=== PATIENT | female | born 1970 | race African-American/Black ===

== ENCOUNTER 2022-02-11 13:45 | Inpatient (IN) | payer OTHER ==
[2022-02-11] MEDS ORDERED: MAGNESIUM CITRATE 300 ML BOTTLE PO PRN (14:57)
[2022-02-11] MEDS ORDERED: NICOTINE 10 MG CARTRIDGE (INHALER) IH PRN (14:57)
[2022-02-11] MEDS ORDERED: MAGNESIUM HYDROX 2400MG/30ML ORAL SUSPENSION 30 ML CUP PO PRN (14:57)
[2022-02-11] MEDS ORDERED: IBUPROFEN 400 MG TABLET (FP) PO PRN (14:57)
[2022-02-11] MEDS ORDERED: P-EPHED 60MG/TRIPROLIDI 2.5MG TABLET PO PRN (14:57)
[2022-02-11] MEDS ORDERED: LOPERAMIDE HCL 2 MG CAPSULE PO PRN (14:57)
[2022-02-11] MEDS ORDERED: ACETAMINOPHEN 325 MG TABLET (FP) PO PRN (14:57)
[2022-02-11] MEDS ORDERED: MAG HYDROX/AL HYDROX/SIMETH 30 ML UNIT-DOSE CUP PO PRN (14:57)
[2022-02-11] MEDS ORDERED: guaiFENesin 200 MG/10 ML 10 ML UNIT-DOSE CUPS PO PRN (14:57)
[2022-02-11 19:58] VITALS: BMI 37.7
[2022-02-11] MEDS ORDERED: TUBERCULIN PPD 5 TU/0.1ML VIAL ID ONE (20:32)
[2022-02-11] MEDS: hydrOXYzine PAMOATE 25 MG CAPSULE (FP) PO SCH ×2 (22:07→22:38)
[2022-02-11] MEDS: MELATONIN 5 MG TABLETS PO SCH (22:07)
[2022-02-11] MEDS: THIAMINE HCL 100 MG TABLET (FP) PO SCH (22:08)
[2022-02-12] MEDS: hydrOXYzine PAMOATE 25 MG CAPSULE (FP) PO SCH ×5 (06:35→21:55)
[2022-02-12] MEDS: PRENATAL VITAMINS W/ FOLIC ACID TABLET (FP) PO SCH (09:13)
[2022-02-12] MEDS: NICOTINE 7 MG/24 HOURS TOPICAL PATCH TD SCH (09:14)
[2022-02-12] MEDS: amLODIPine BESYLATE 10 MG TABLET (FP) PO SCH (10:31)
[2022-02-12] MEDS: PSYLLIUM 5.85 GM PACKET PO SCH (10:47)
[2022-02-12 12:30] LABS: HEMATOCRIT 40.9 % (32.4-45.2); HEMOGLOBIN 13.6 GM/dL (10.7-15.3); MCH 28.9 pg (25.7-33.7); MCHC 33.3 g/dl (32.0-36.0); MEAN CELL VOLUME 86.6 fl (80-96); MEAN PLT VOLUME 8.3 fl (7.5-11.1); PLATELET COUNT 430 10^3/uL (134-434); RBC 4.72 M/mm3 (3.60-5.2); RDW 14.3 % (11.6-15.6)
[2022-02-12 12:37] LABS: ALBUMIN 3.5 g/dl (3.4-5.0); BLOOD UREA NITROGEN 19.5 mg/dL (7-18); CALCIUM 10.2 mg/dL (8.5-10.1)
[2022-02-12 12:40] LABS: BILIRUBIN,TOTAL 0.4 mg/dL (0.2-1); TOT PROT 7.7 g/dl (6.4-8.2)
[2022-02-12 13:00] LABS: SYPHILIS W/ RPR CONF NON-REACTIVE (NONREACTIVE)
[2022-02-12] MEDS: ARIPiprazole 5 MG TABLET PO SCH (13:42)
[2022-02-12] MEDS: PRAZOSIN HCL 1 MG CAPSULE PO SCH (21:55)
[2022-02-12] MEDS: MELATONIN 5 MG TABLETS PO SCH (21:55)
[2022-02-12] MEDS: THIAMINE HCL 100 MG TABLET (FP) PO SCH (21:55)
[2022-02-13] MEDS: hydrOXYzine PAMOATE 25 MG CAPSULE (FP) PO SCH ×5 (07:25→22:03)
[2022-02-13] MEDS: PRENATAL VITAMINS W/ FOLIC ACID TABLET (FP) PO SCH (10:18)
[2022-02-13] MEDS: ARIPiprazole 5 MG TABLET PO SCH (10:18)
[2022-02-13] MEDS: NICOTINE 7 MG/24 HOURS TOPICAL PATCH TD SCH (10:19)
[2022-02-13] MEDS: amLODIPine BESYLATE 10 MG TABLET (FP) PO SCH (10:19)
[2022-02-13] MEDS: ALBUTEROL SO4 HFA INHALER IH PRN ×2 (10:19→22:04)
[2022-02-13] MEDS: PSYLLIUM 5.85 GM PACKET PO SCH (10:19)
[2022-02-13 13:56] LABS: EPI CELLS >36 /uL (0-25.1); HYALINE CASTS 2 /uL (0-3.1); URINE APPEARANCE CLOUDY; URINE BACTERIA 1409 /uL (0-1359); URINE BILIRUBIN NEGATIVE (NEGATIVE); URINE COLOR YELLOW; URINE GLUCOSE (UA) NEGATIVE (NEGATIVE); URINE KETONE NEGATIVE (NEGATIVE); URINE LEUK ESTERASE 1+ (NEGATIVE); URINE NITRITE NEGATIVE (NEGATIVE); URINE PROTEIN NEGATIVE (NEGATIVE); URINE RBC 26.9 /uL (0-23.9); URINE WBC 161 /uL (0-25.8)
[2022-02-13] MEDS: THIAMINE HCL 100 MG TABLET (FP) PO SCH (22:03)
[2022-02-13] MEDS: PRAZOSIN HCL 1 MG CAPSULE PO SCH (22:04)
[2022-02-13] MEDS: MELATONIN 5 MG TABLETS PO SCH (22:05)
[2022-02-14] MEDS: hydrOXYzine PAMOATE 25 MG CAPSULE (FP) PO SCH ×2 (07:05→10:52)
[2022-02-14 07:23] VITALS: TEMP 97.7
[2022-02-14] MEDS: PRENATAL VITAMINS W/ FOLIC ACID TABLET (FP) PO SCH (10:50)
[2022-02-14] MEDS: NICOTINE 7 MG/24 HOURS TOPICAL PATCH TD SCH (10:50)
[2022-02-14] MEDS: PSYLLIUM 5.85 GM PACKET PO SCH (10:51)
[2022-02-14] MEDS: ARIPiprazole 5 MG TABLET PO SCH (10:51)
[2022-02-14] MEDS: amLODIPine BESYLATE 10 MG TABLET (FP) PO SCH (10:51)
[2022-02-14 11:14] VITALS: BP 102/62; PULSE 98
[2022-02-15 08:33] LABS: SARS-CoV-2 NAA Not Detected
== END 2022-02-14 12:41 | disposition left against medical advice (07) | DRG 770 ==
LOC: YASAS 13:45 → Y5N 19:46
PROVIDERS: ADMIT Allergy & Immunology; ATTEND Allergy & Immunology
PROC: HZ42ZZZ Group Counseling for Substance Abuse Treatment, Cognitive-Behavioral (ICD-10-PCS; principal; 2022-02-11)
DX: F10.20 Alcohol dependence, uncomplicated (principal); F14.20 Cocaine dependence, uncomplicated; F12.10 Cannabis abuse, uncomplicated; F17.210 Nicotine dependence, cigarettes, uncomplicated; F31.9 Bipolar disorder, unspecified; F43.10 Post-traumatic stress disorder, unspecified; G47.00 Insomnia, unspecified; I10 Essential (primary) hypertension; J44.9 Chronic obstructive pulmonary disease, unspecified; T17.1XXA Foreign body in nostril, initial encounter; X58.XXXA Exposure to other specified factors, initial encounter; Y92.230 Patient room in hospital as the place of occurrence of the external cause; Z87.09 Personal history of other diseases of the respiratory system; Z28.310 Unvaccinated for COVID-19; Z91.410 Personal history of adult physical and sexual abuse; Z56.0 Unemployment, unspecified; Z59.00 Homelessness unspecified
CPT/HCPCS: 36415; 80053; 81003; 85027; 86780; 86803; 93005; 93010; 99282-25; C9803-CS; U0003; U0005

== ENCOUNTER 2022-02-13 05:16 | Emergency (ER) | payer OTHER ==
[2022-02-13 05:24] VITALS: BP 120/76; PULSE 88; TEMP 97.1; BMI 25.7
== END 2022-02-13 06:31 | disposition short-term general hospital (02) ==
LOC: JER 05:16
PROC: 09CKXZZ Extirpation of Matter from Nasal Mucosa and Soft Tissue, External Approach (ICD-10-PCS; principal; 2022-02-13)
DX: T17.1XXA Foreign body in nostril, initial encounter (principal)
CPT/HCPCS: 99282-25

== ENCOUNTER 2023-03-23 17:42 | Inpatient (IN) | payer OTHER ==
[2023-03-23 18:34] VITALS: BMI 21.9
[2023-03-23] MEDS ORDERED: IBUPROFEN 600 MG TABLET (FP) PO PRN (21:05)
[2023-03-23] MEDS ORDERED: DICYCLOMINE HCL 10 MG CAPSULE PO PRN (21:05)
[2023-03-23] MEDS ORDERED: NALOXONE HCL 0.4 MG/ML VIAL IM PRN (21:05)
[2023-03-23] MEDS ORDERED: IBUPROFEN 400 MG TABLET (FP) PO PRN (21:05)
[2023-03-23] MEDS ORDERED: BISMUTH SUBSALICYLATE 524 MG/30 ML PO PRN (21:05)
[2023-03-23] MEDS ORDERED: BENZOCAINE/MENTHOL (CHLORASEPTIC ) LOZENGE MM PRN (21:05)
[2023-03-23] MEDS ORDERED: MAG HYDROX/AL HYDROX/SIMETH 30 ML UNIT-DOSE CUP PO PRN (21:05)
[2023-03-23] MEDS ORDERED: NICOTINE 10 MG CARTRIDGE (INHALER) IH PRN (21:05)
[2023-03-23] MEDS ORDERED: NALOXONE HCL (KLOXXADO) 8 MG SPRAY NS PRN (21:05)
[2023-03-23] MEDS ORDERED: BENZONATATE 200 MG CAPSULE PO PRN (21:05)
[2023-03-23] MEDS ORDERED: ONDANSETRON *ODT* 4 MG TABLET SL PRN (21:05)
[2023-03-23] MEDS ORDERED: LOPERAMIDE HCL 2 MG CAPSULE PO PRN (21:05)
[2023-03-23] MEDS ORDERED: guaiFENesin 600 MG TABLET.ER (FP) PO PRN (21:05)
[2023-03-23] MEDS ORDERED: POLYETHYLENE GLYCOL (HEALTHYLAX) 3350 17 GM PACKET PO PRN (21:05)
[2023-03-23] MEDS ORDERED: MELATONIN 5 MG TABLETS PO SCH (22:00)
[2023-03-23] MEDS: THIAMINE HCL 100 MG TABLET (FP) PO SCH (23:50)
[2023-03-24] MEDS: METHOCARBAMOL 500 MG TABLET PO PRN (06:05)
[2023-03-24] MEDS ORDERED: ALBUTEROL SO4 HFA INHALER IH PRN (09:10)
[2023-03-24] MEDS ORDERED: chlordiazePOXIDE HCL 25 MG CAPSULE PO PRN (09:11)
[2023-03-24] MEDS: amLODIPine BESYLATE 10 MG TABLET (FP) PO SCH (10:27)
[2023-03-24] MEDS: HYDROCHLOROTHIAZIDE 12.5 MG CAPSULE (FP) PO SCH (10:27)
[2023-03-24] MEDS: PRENATAL VITAMINS W/ FOLIC ACID TABLET (FP) PO SCH (10:27)
[2023-03-24] MEDS: chlordiazePOXIDE HCL 25 MG CAPSULE PO SCH ×3 (10:28→22:27)
[2023-03-24] MEDS: ACETAMINOPHEN 325 MG TABLET (FP) PO PRN (10:30)
[2023-03-24] MEDS: NICOTINE 21 MG/24 HOURS TOPICAL PATCH TD SCH (10:43)
[2023-03-24 11:45] LABS: POTASSIUM 4.5 mmol/L (3.5-5.1)
[2023-03-24 11:54] LABS: BLOOD UREA NITROGEN 19.5 mg/dL (7-18)
[2023-03-24 11:55] LABS: CALCIUM 9.9 mg/dL (8.5-10.1)
[2023-03-24 11:59] LABS: CREATININE 0.9 mg/dL (0.55-1.3)
[2023-03-24 12:00] LABS: HEMOGLOBIN 12.3 GM/dL (10.7-15.3); MCH 27.1 pg (25.7-33.7); MCHC 31.6 g/dl (32.0-36.0); MEAN CELL VOLUME 85.7 fl (80-96); MEAN PLT VOLUME 9.2 fl (7.5-11.1); PLATELET COUNT 302 10^3/uL (134-434); RBC 4.55 M/mm3 (3.60-5.2); RDW 13.8 % (11.6-15.6); TOT PROT 6.9 g/dl (6.4-8.2)
[2023-03-24] MEDS: PRAZOSIN HCL 1 MG CAPSULE PO SCH (22:27)
[2023-03-24] MEDS: MELATONIN 5 MG TABLETS PO SCH (22:27)
[2023-03-24] MEDS: THIAMINE HCL 100 MG TABLET (FP) PO SCH (22:27)
[2023-03-25] MEDS: chlordiazePOXIDE HCL 25 MG CAPSULE PO SCH ×4 (05:58→22:23)
[2023-03-25] MEDS: METHOCARBAMOL 500 MG TABLET PO PRN (06:01)
[2023-03-25] MEDS: PRENATAL VITAMINS W/ FOLIC ACID TABLET (FP) PO SCH (10:51)
[2023-03-25] MEDS: NICOTINE 21 MG/24 HOURS TOPICAL PATCH TD SCH (10:53)
[2023-03-25] MEDS: amLODIPine BESYLATE 10 MG TABLET (FP) PO SCH (10:53)
[2023-03-25] MEDS: HYDROCHLOROTHIAZIDE 12.5 MG CAPSULE (FP) PO SCH (10:53)
[2023-03-25] MEDS: ALBUTEROL SO4 HFA INHALER IH PRN (15:02)
[2023-03-25] MEDS: THIAMINE HCL 100 MG TABLET (FP) PO SCH (22:23)
[2023-03-25] MEDS: PRAZOSIN HCL 1 MG CAPSULE PO SCH (22:23)
[2023-03-25] MEDS: MELATONIN 5 MG TABLETS PO SCH (22:24)
[2023-03-26] MEDS: chlordiazePOXIDE HCL 25 MG CAPSULE PO SCH ×4 (05:55→22:23)
[2023-03-26] MEDS: METHOCARBAMOL 500 MG TABLET PO PRN ×2 (06:07→22:23)
[2023-03-26] MEDS: NICOTINE 21 MG/24 HOURS TOPICAL PATCH TD SCH (10:31)
[2023-03-26] MEDS: amLODIPine BESYLATE 10 MG TABLET (FP) PO SCH (10:32)
[2023-03-26] MEDS: HYDROCHLOROTHIAZIDE 12.5 MG CAPSULE (FP) PO SCH (10:32)
[2023-03-26] MEDS: PRENATAL VITAMINS W/ FOLIC ACID TABLET (FP) PO SCH (10:33)
[2023-03-26] MEDS: PRAZOSIN HCL 1 MG CAPSULE PO SCH (22:23)
[2023-03-26] MEDS: THIAMINE HCL 100 MG TABLET (FP) PO SCH (22:23)
[2023-03-26] MEDS: ALBUTEROL SO4 HFA INHALER IH PRN (22:23)
[2023-03-26] MEDS: MELATONIN 5 MG TABLETS PO SCH (22:24)
[2023-03-27] MEDS ORDERED: chlordiazePOXIDE HCL 10 MG CAPSULE PO PRN
[2023-03-27] MEDS: chlordiazePOXIDE HCL 10 MG CAPSULE PO SCH ×4 (05:44→22:19)
[2023-03-27] MEDS: METHOCARBAMOL 500 MG TABLET PO PRN ×2 (05:45→17:30)
[2023-03-27] MEDS ORDERED: hydrOXYzine PAMOATE 25 MG CAPSULE (FP) PO ONE (09:15)
[2023-03-27] MEDS: ALBUTEROL SO4 HFA INHALER IH PRN (10:36)
[2023-03-27] MEDS: PRENATAL VITAMINS W/ FOLIC ACID TABLET (FP) PO SCH (10:37)
[2023-03-27] MEDS: amLODIPine BESYLATE 10 MG TABLET (FP) PO SCH (10:37)
[2023-03-27] MEDS: NICOTINE 21 MG/24 HOURS TOPICAL PATCH TD SCH (10:39)
[2023-03-27] MEDS: HYDROCHLOROTHIAZIDE 12.5 MG CAPSULE (FP) PO SCH (10:41)
[2023-03-27] MEDS: MAGNESIUM HYDROX 2400MG/30ML ORAL SUSPENSION 30 ML CUP PO PRN (17:36)
[2023-03-27] MEDS: PRAZOSIN HCL 1 MG CAPSULE PO SCH (22:19)
[2023-03-27] MEDS: THIAMINE HCL 100 MG TABLET (FP) PO SCH (22:19)
[2023-03-27] MEDS: SUVOREXANT 10 MG TABLET PO PRN (22:21)
[2023-03-28] MEDS: chlordiazePOXIDE HCL 10 MG CAPSULE PO SCH ×2 (05:26→17:11)
[2023-03-28] MEDS: ACETAMINOPHEN 325 MG TABLET (FP) PO PRN (05:27)
[2023-03-28] MEDS: PRENATAL VITAMINS W/ FOLIC ACID TABLET (FP) PO SCH (10:16)
[2023-03-28] MEDS: amLODIPine BESYLATE 10 MG TABLET (FP) PO SCH (10:16)
[2023-03-28] MEDS: NICOTINE 21 MG/24 HOURS TOPICAL PATCH TD SCH (10:17)
[2023-03-28] MEDS: HYDROCHLOROTHIAZIDE 12.5 MG CAPSULE (FP) PO SCH (10:17)
[2023-03-28] MEDS: METHOCARBAMOL 500 MG TABLET PO PRN (10:17)
[2023-03-28] MEDS: THIAMINE HCL 100 MG TABLET (FP) PO SCH (22:07)
[2023-03-28] MEDS: SUVOREXANT 10 MG TABLET PO PRN (22:08)
[2023-03-28] MEDS: PRAZOSIN HCL 1 MG CAPSULE PO SCH (22:08)
[2023-03-28] MEDS: ALBUTEROL SO4 HFA INHALER IH PRN (22:11)
[2023-03-28] MEDS: MAGNESIUM HYDROX 2400MG/30ML ORAL SUSPENSION 30 ML CUP PO PRN (22:56)
[2023-03-29] MEDS ORDERED: chlordiazePOXIDE HCL 10 MG CAPSULE PO ONE (05:00)
[2023-03-29] MEDS: METHOCARBAMOL 500 MG TABLET PO PRN (05:08)
[2023-03-29 09:58] VITALS: BP 111/72; PULSE 90; RESP 17; TEMP 97.9
[2023-03-29] MEDS: NICOTINE 21 MG/24 HOURS TOPICAL PATCH TD SCH (10:43)
[2023-03-29] MEDS: amLODIPine BESYLATE 10 MG TABLET (FP) PO SCH (10:43)
[2023-03-29] MEDS: PRENATAL VITAMINS W/ FOLIC ACID TABLET (FP) PO SCH (10:43)
[2023-03-29] MEDS: HYDROCHLOROTHIAZIDE 12.5 MG CAPSULE (FP) PO SCH (10:44)
== END 2023-03-29 11:30 | disposition home or self-care (01) | DRG 774 ==
LOC: YASAS 17:42 → Y3N 22:43 → UNDOADMIN 22:43 → Y6N 22:45 → Y3N 22:45 → Y6N 03-24 18:13
PROVIDERS: ADMIT Allergy & Immunology; ATTEND Surgery
PROC: HZ2ZZZZ Detoxification Services for Substance Abuse Treatment (ICD-10-PCS; principal; 2023-03-20)
DX: F10.230 Alcohol dependence with withdrawal, uncomplicated (principal); F14.20 Cocaine dependence, uncomplicated; F12.20 Cannabis dependence, uncomplicated; F17.213 Nicotine dependence, cigarettes, with withdrawal; F19.282 Other psychoactive substance dependence with psychoactive substance-induced sleep disorder; F19.24 Other psychoactive substance dependence with psychoactive substance-induced mood disorder; F31.9 Bipolar disorder, unspecified; F43.10 Post-traumatic stress disorder, unspecified; I10 Essential (primary) hypertension; J44.9 Chronic obstructive pulmonary disease, unspecified; J45.20 Mild intermittent asthma, uncomplicated; R73.9 Hyperglycemia, unspecified; Z62.810 Personal history of physical and sexual abuse in childhood; Z91.410 Personal history of adult physical and sexual abuse; Z28.310 Unvaccinated for COVID-19; Z28.9 Immunization not carried out for unspecified reason
CPT/HCPCS: 36415; 80053; 83036; 85027; 86780; 87635; 93005; 93010

== ENCOUNTER 2023-10-24 12:36 | Inpatient (IN) | payer OTHER ==
[2023-10-24 13:36] VITALS: BMI 20.2
[2023-10-24] MEDS ORDERED: guaiFENesin 600 MG TABLET.ER (FP) PO PRN (15:04)
[2023-10-24] MEDS ORDERED: chlordiazePOXIDE HCL 25 MG CAPSULE PO PRN (15:04)
[2023-10-24] MEDS ORDERED: DICYCLOMINE HCL 10 MG CAPSULE PO PRN (15:04)
[2023-10-24] MEDS ORDERED: IBUPROFEN 400 MG TABLET (FP) PO PRN (15:04)
[2023-10-24] MEDS ORDERED: LOPERAMIDE HCL 2 MG CAPSULE PO PRN (15:04)
[2023-10-24] MEDS ORDERED: MAGNESIUM HYDROX 2400MG/30ML ORAL SUSPENSION 30 ML CUP PO PRN (15:04)
[2023-10-24] MEDS ORDERED: POLYETHYLENE GLYCOL (HEALTHYLAX) 3350 17 GM PACKET PO PRN (15:04)
[2023-10-24] MEDS ORDERED: ONDANSETRON *ODT* 4 MG TABLET SL PRN (15:04)
[2023-10-24] MEDS ORDERED: BENZONATATE 200 MG CAPSULE PO PRN (15:04)
[2023-10-24] MEDS ORDERED: ACETAMINOPHEN 325 MG TABLET (FP) PO PRN (15:04)
[2023-10-24] MEDS ORDERED: NALOXONE HCL 0.4 MG/ML VIAL IM PRN (15:04)
[2023-10-24] MEDS ORDERED: MAG HYDROX/AL HYDROX/SIMETH 30 ML UNIT-DOSE CUP PO PRN (15:04)
[2023-10-24] MEDS ORDERED: NALOXONE HCL (KLOXXADO) 8 MG SPRAY NS PRN (15:04)
[2023-10-24] MEDS ORDERED: IBUPROFEN 600 MG TABLET (FP) PO PRN (15:04)
[2023-10-24] MEDS ORDERED: BISMUTH SUBSALICYLATE 262 MG/15 ML BTL PO PRN (15:04)
[2023-10-24] MEDS ORDERED: BENZOCAINE/MENTHOL (CHLORASEPTIC ) LOZENGE MM PRN (15:04)
[2023-10-24] MEDS: PRENATAL VITAMINS W/ FOLIC ACID TABLET (FP) PO SCH (16:13)
[2023-10-24] MEDS: NICOTINE 14 MG/24 HOURS TOPICAL PATCH TD SCH (16:13)
[2023-10-24] MEDS: chlordiazePOXIDE HCL 25 MG CAPSULE PO SCH ×2 (17:25→22:23)
[2023-10-24] MEDS: MELATONIN 5 MG TABLETS PO SCH (22:22)
[2023-10-24] MEDS: METHOCARBAMOL 500 MG TABLET PO PRN (22:22)
[2023-10-24] MEDS: THIAMINE HCL 100 MG TABLET (FP) PO SCH (22:22)
[2023-10-25] MEDS: chlordiazePOXIDE HCL 25 MG CAPSULE PO SCH ×4 (05:36→23:15)
[2023-10-25] MEDS: METHOCARBAMOL 500 MG TABLET PO PRN (05:43)
[2023-10-25] MEDS: hydrOXYzine PAMOATE 25 MG CAPSULE (FP) PO PRN (05:43)
[2023-10-25 08:30] LABS: CHLORIDE 106 mmol/L (98-107); POTASSIUM 4.6 mmol/L (3.5-5.1); SODIUM 139 mmol/L (136-145)
[2023-10-25 08:33] LABS: HEMATOCRIT 41.1 % (32.4-45.2); HEMOGLOBIN 13.3 GM/dL (10.7-15.3); MCH 27.6 pg (25.7-33.7); MCHC 32.3 g/dl (32.0-36.0); MEAN CELL VOLUME 85.4 fl (80-96); MEAN PLT VOLUME 8.3 fl (7.5-11.1); PLATELET COUNT 464 10^3/uL (134-434); RBC 4.81 M/mm3 (3.60-5.2); RDW 15.1 % (11.6-15.6); WHITE BLOOD COUNT 7.4 K/mm3 (4.0-10.0)
[2023-10-25 08:38] LABS: CALCIUM 9.5 mg/dL (8.5-10.1)
[2023-10-25 08:39] LABS: ALBUMIN 2.6 g/dl (3.4-5.0); ANION GAP 5 mmol/L (4-13); CO2 28 mmol/L (21-32); GLUCOSE,RANDOM 89 mg/dL (74-106)
[2023-10-25 08:42] LABS: CREATININE 0.9 mg/dL (0.55-1.3); SGOT/AST 36 U/L (15-37); SGPT/ALT 35 U/L (13-61)
[2023-10-25 08:44] LABS: BILIRUBIN,TOTAL 0.3 mg/dL (0.2-1); TOT PROT 6.7 g/dl (6.4-8.2)
[2023-10-25 08:45] LABS: ALK PHOS 66 U/L (45-117)
[2023-10-25] MEDS: NICOTINE 14 MG/24 HOURS TOPICAL PATCH TD SCH (10:25)
[2023-10-25] MEDS: PRENATAL VITAMINS W/ FOLIC ACID TABLET (FP) PO SCH (10:25)
[2023-10-25] MEDS: PRAZOSIN HCL 1 MG CAPSULE PO SCH (23:15)
[2023-10-25] MEDS: THIAMINE HCL 100 MG TABLET (FP) PO SCH (23:15)
[2023-10-25] MEDS: MELATONIN 5 MG TABLETS PO SCH (23:15)
[2023-10-26] MEDS: chlordiazePOXIDE HCL 25 MG CAPSULE PO SCH ×4 (05:39→22:05)
[2023-10-26] MEDS: PRENATAL VITAMINS W/ FOLIC ACID TABLET (FP) PO SCH (10:38)
[2023-10-26] MEDS: ARIPiprazole 5 MG TABLET PO SCH (10:39)
[2023-10-26] MEDS: NICOTINE 14 MG/24 HOURS TOPICAL PATCH TD SCH (10:41)
[2023-10-26] MEDS: PRAZOSIN HCL 1 MG CAPSULE PO SCH (22:04)
[2023-10-26] MEDS: THIAMINE HCL 100 MG TABLET (FP) PO SCH (22:04)
[2023-10-26] MEDS: MELATONIN 5 MG TABLETS PO SCH (22:04)
[2023-10-27] MEDS ORDERED: chlordiazePOXIDE HCL 10 MG CAPSULE PO PRN
[2023-10-27] MEDS: chlordiazePOXIDE HCL 10 MG CAPSULE PO SCH ×4 (06:30→23:06)
[2023-10-27] MEDS: NICOTINE 14 MG/24 HOURS TOPICAL PATCH TD SCH (10:16)
[2023-10-27] MEDS: ARIPiprazole 5 MG TABLET PO SCH (10:16)
[2023-10-27] MEDS: PRENATAL VITAMINS W/ FOLIC ACID TABLET (FP) PO SCH (10:16)
[2023-10-27] MEDS: hydrOXYzine PAMOATE 25 MG CAPSULE (FP) PO PRN (23:05)
[2023-10-27] MEDS: PRAZOSIN HCL 1 MG CAPSULE PO SCH (23:05)
[2023-10-27] MEDS: METHOCARBAMOL 500 MG TABLET PO PRN (23:05)
[2023-10-27] MEDS: MELATONIN 5 MG TABLETS PO SCH (23:05)
[2023-10-27] MEDS: THIAMINE HCL 100 MG TABLET (FP) PO SCH (23:05)
[2023-10-28] MEDS: chlordiazePOXIDE HCL 10 MG CAPSULE PO SCH ×2 (05:44→17:10)
[2023-10-28] MEDS: ARIPiprazole 5 MG TABLET PO SCH (09:46)
[2023-10-28] MEDS: PRENATAL VITAMINS W/ FOLIC ACID TABLET (FP) PO SCH (09:47)
[2023-10-28] MEDS: NICOTINE 14 MG/24 HOURS TOPICAL PATCH TD SCH (09:47)
[2023-10-28 11:32] LABS: BASO % 0.8 % (0-2.0); EOS % 5.1 % (0-4.5); HEMATOCRIT 40.5 % (32.4-45.2); LYMPH % 30.8 % (8-40); MCH 27.3 pg (25.7-33.7); MCHC 32.1 g/dl (32.0-36.0); MEAN CELL VOLUME 85.1 fl (80-96); MEAN PLT VOLUME 7.8 fl (7.5-11.1); MONO % 11.8 % (3.8-10.2); NEUT % 51.5 % (42.8-82.8); PLATELET COUNT 577 10^3/uL (134-434); RBC 4.76 M/mm3 (3.60-5.2); RDW 15.4 % (11.6-15.6); WHITE BLOOD COUNT 6.5 K/mm3 (4.0-10.0)
[2023-10-28] MEDS: THIAMINE HCL 100 MG TABLET (FP) PO SCH (22:03)
[2023-10-28] MEDS: MELATONIN 5 MG TABLETS PO SCH (22:03)
[2023-10-28] MEDS: PRAZOSIN HCL 1 MG CAPSULE PO SCH (22:03)
[2023-10-29] MEDS: chlordiazePOXIDE HCL 10 MG CAPSULE PO ONE ×2 (05:50→06:00)
[2023-10-29] MEDS: guaiFENesin 200 MG/10 ML 10 ML UNIT-DOSE CUPS PO PRN ×2 (08:01→15:56)
[2023-10-29] MEDS: NICOTINE 14 MG/24 HOURS TOPICAL PATCH TD SCH (10:45)
[2023-10-29] MEDS: ARIPiprazole 5 MG TABLET PO SCH (10:45)
[2023-10-29] MEDS: PRENATAL VITAMINS W/ FOLIC ACID TABLET (FP) PO SCH (10:45)
[2023-10-29] MEDS: PRAZOSIN HCL 1 MG CAPSULE PO SCH (22:06)
[2023-10-29] MEDS: MELATONIN 5 MG TABLETS PO SCH (22:07)
[2023-10-29] MEDS: hydrOXYzine PAMOATE 25 MG CAPSULE (FP) PO PRN (22:07)
[2023-10-29] MEDS: THIAMINE HCL 100 MG TABLET (FP) PO SCH (22:07)
[2023-10-30] MEDS: PRENATAL VITAMINS W/ FOLIC ACID TABLET (FP) PO SCH (10:30)
[2023-10-30] MEDS: NICOTINE 14 MG/24 HOURS TOPICAL PATCH TD SCH (10:30)
[2023-10-30] MEDS: ARIPiprazole 5 MG TABLET PO SCH (10:30)
[2023-10-30] MEDS: PRAZOSIN HCL 1 MG CAPSULE PO SCH (21:26)
[2023-10-30] MEDS: MELATONIN 5 MG TABLETS PO SCH (21:26)
[2023-10-30] MEDS: THIAMINE HCL 100 MG TABLET (FP) PO SCH (21:26)
[2023-10-31] MEDS ORDERED: ALBUTEROL SO4 HFA INHALER IH PRN (08:17)
[2023-10-31] MEDS: ARIPiprazole 5 MG TABLET PO SCH (09:37)
[2023-10-31] MEDS: NICOTINE 14 MG/24 HOURS TOPICAL PATCH TD SCH (09:38)
[2023-10-31] MEDS ORDERED: amLODIPine BESYLATE 10 MG TABLET (FP) PO SCH (10:00)
[2023-10-31] MEDS ORDERED: HYDROCHLOROTHIAZIDE 12.5 MG CAPSULE (FP) PO SCH (10:00)
[2023-10-31] MEDS: PRENATAL VITAMINS W/ FOLIC ACID TABLET (FP) PO SCH (10:35)
[2023-10-31 16:46] VITALS: RESP 18
[2023-10-31 20:41] VITALS: BP 115/68; PULSE 98; TEMP 98.4
== END 2023-10-31 21:48 | disposition left against medical advice (07) | DRG 770 ==
LOC: YASAS 12:36 → Y3N 15:47
PROVIDERS: ADMIT Surgery; ATTEND Allergy & Immunology
PROC: HZ2ZZZZ Detoxification Services for Substance Abuse Treatment (ICD-10-PCS; principal; 2023-10-24)
DX: F10.230 Alcohol dependence with withdrawal, uncomplicated (principal); F14.20 Cocaine dependence, uncomplicated; F12.20 Cannabis dependence, uncomplicated; F17.210 Nicotine dependence, cigarettes, uncomplicated; F31.9 Bipolar disorder, unspecified; F43.10 Post-traumatic stress disorder, unspecified; U07.1 COVID-19; E72.20 Disorder of urea cycle metabolism, unspecified; I10 Essential (primary) hypertension; J44.9 Chronic obstructive pulmonary disease, unspecified; J45.20 Mild intermittent asthma, uncomplicated; Z28.310 Unvaccinated for COVID-19; Z28.9 Immunization not carried out for unspecified reason
CPT/HCPCS: 36415; 80053; 80307; 81025; 82140; 85025; 85027; 86780; 87635

== ENCOUNTER 2024-08-21 17:25 | Inpatient (IN) | payer OTHER ==
[2024-08-21 21:16] VITALS: BMI 20.9
[2024-08-21] MEDS ORDERED: POLYETHYLENE GLYCOL (HEALTHYLAX) 3350 17 GM PACKET PO PRN (23:12)
[2024-08-21] MEDS ORDERED: ACETAMINOPHEN 325 MG TABLET (FP) PO PRN (23:12)
[2024-08-21] MEDS ORDERED: P-EPHED 60MG/TRIPROLIDI 2.5MG TABLET PO PRN (23:12)
[2024-08-21] MEDS ORDERED: hydrOXYzine PAMOATE 25 MG CAPSULE (FP) PO PRN (23:12)
[2024-08-21] MEDS ORDERED: IBUPROFEN 400 MG TABLET (FP) PO PRN (23:12)
[2024-08-21] MEDS ORDERED: LOPERAMIDE HCL 2 MG CAPSULE PO PRN (23:12)
[2024-08-21] MEDS ORDERED: MAGNESIUM HYDROX 2400MG/30ML ORAL SUSPENSION 30 ML CUP PO PRN (23:12)
[2024-08-21] MEDS ORDERED: IBUPROFEN 600 MG TABLET (FP) PO PRN (23:12)
[2024-08-21] MEDS ORDERED: NALOXONE (NYS OPIOID OVERDOSE PROGRAM) 4 MG/0.1 ML SPRAY NS PRN (23:12)
[2024-08-21] MEDS ORDERED: NICOTINE POLACRILEX 2 MG GUM BUC PRN (23:12)
[2024-08-21] MEDS ORDERED: MAG HYDROX/AL HYDROX/SIMETH 30 ML UNIT-DOSE CUP PO PRN (23:12)
[2024-08-21] MEDS ORDERED: NICOTINE POLACRILEX 2 MG LOZENGE BC PRN (23:12)
[2024-08-21] MEDS ORDERED: BENZONATATE 200 MG CAPSULE PO PRN (23:12)
[2024-08-21] MEDS ORDERED: cloNIDine HCL 0.1 MG TABLET ONE (23:46)
[2024-08-21] MEDS: ALBUTEROL SO4 2.5/IPRATROPIUM 0.5 INH SOL 3 ML VIAL.NEB. NEB SCH (23:49)
[2024-08-21] MEDS: cloNIDine HCL 0.1 MG TABLET PO ONE (23:49)
[2024-08-22] MEDS: guaiFENesin 600 MG TABLET.ER (FP) PO PRN (00:27)
[2024-08-22] MEDS: ALBUTEROL SO4 HFA INHALER IH PRN (00:27)
[2024-08-22] MEDS: METOPROLOL TARTRATE 25 MG TABLET (FP) PO ONE (00:42)
[2024-08-22] MEDS: MELATONIN 5 MG TABLETS PO SCH (00:42)
[2024-08-22] MEDS: amLODIPine BESYLATE 10 MG TABLET (FP) PO SCH (10:30)
[2024-08-22] MEDS: HYDROCHLOROTHIAZIDE 12.5 MG CAPSULE (FP) PO SCH (10:30)
[2024-08-22] MEDS: PRENATAL VITAMINS W/ FOLIC ACID TABLET (FP) PO SCH (10:30)
[2024-08-22 15:06] LABS: HEMATOCRIT 35.5 % (32.4-45.2); HEMOGLOBIN 11.4 GM/dL (10.7-15.3); MEAN CELL VOLUME 87.6 fl (80-96); MEAN PLT VOLUME 8.9 fl (7.5-11.1); PLATELET COUNT 285 10^3/uL (134-434); RBC 4.06 M/mm3 (3.60-5.2); RDW 13.9 % (11.6-15.6); WHITE BLOOD COUNT 8.1 K/mm3 (4.0-10.0)
[2024-08-22 15:32] LABS: CHLORIDE 111 mmol/L (98-107); POTASSIUM 4.3 mmol/L (3.5-5.1); SODIUM 143 mmol/L (136-145)
[2024-08-22 15:34] LABS: ALBUMIN 2.7 g/dl (3.4-5.0); CALCIUM 9.1 mg/dL (8.5-10.1)
[2024-08-22 15:35] LABS: ANION GAP 5 mmol/L (4-13); BLOOD UREA NITROGEN 20.1 mg/dL (7-18); CO2 27 mmol/L (21-32); GLUCOSE,RANDOM 144 mg/dL (74-106)
[2024-08-22 15:37] LABS: CREATININE 0.8 mg/dL (0.55-1.3); SGOT/AST 35 U/L (15-37); SGPT/ALT 29 U/L (13-61)
[2024-08-22 15:38] LABS: BILIRUBIN,TOTAL 0.3 mg/dL (0.2-1)
[2024-08-22 15:39] LABS: ALK PHOS 101 U/L (45-117)
[2024-08-22 17:07] LABS: EPI CELLS 35 /uL (0-25.1); HYALINE CASTS 2 /uL (0-3.1); PH,URINE 6.5 (5.0-8.0); URINE APPEARANCE CLEAR; URINE BACTERIA 240 /uL (0-1359); URINE BILIRUBIN NEGATIVE (NEGATIVE); URINE COLOR YELLOW; URINE GLUCOSE (UA) NEGATIVE (NEGATIVE); URINE KETONE NEGATIVE (NEGATIVE); URINE LEUK ESTERASE 1+ (NEGATIVE); URINE NITRITE NEGATIVE (NEGATIVE); URINE PROTEIN NEGATIVE (NEGATIVE); URINE RBC 7 /uL (0-23.9); URINE UROBILINOGEN 0.2 mg/dL (0.2-1.0); URINE WBC 67 /uL (0-25.8)
[2024-08-22] MEDS: THIAMINE 100 MG TABLET PO SCH (21:20)
[2024-08-22] MEDS: DIVALPROEX SODIUM 250 MG TABLET E.C. PO SCH (21:20)
[2024-08-22] MEDS: QUEtiapine FUMARATE 100 MG TABLET (FP) PO SCH (21:20)
[2024-08-23] MEDS: ALBUTEROL SO4 0.083% IH SOL 2.5 MG/3 ML VIAL.NEB. NEB PRN (09:29)
[2024-08-23] MEDS: predniSONE 20 MG TABLET (UD) PO SCH (14:40)
[2024-08-23] MEDS: AZITHROMYCIN 250 MG TABLET PO ONE (14:40)
[2024-08-23] MEDS: BENZOCAINE/MENTHOL (CHLORASEPTIC ) LOZENGE MM PRN (21:51)
[2024-08-24] MEDS: MELATONIN 5 MG TABLETS PO ONE (02:15)
[2024-08-24] MEDS: AZITHROMYCIN 250 MG TABLET PO SCH (09:23)
[2024-08-24] MEDS ORDERED: ALBUTEROL SO4 0.083% IH SOL 2.5 MG/3 ML VIAL.NEB. NEB PRN (15:12)
[2024-08-25] MEDS: BUDESONIDE/FORMETEROL FUMARATE 160/4.5 mcg INHALER IH SCH (12:50)
[2024-08-26 13:01] VITALS: RESP 16
[2024-08-27 06:12] VITALS: TEMP 97.6
[2024-08-27 09:10] VITALS: BP 135/76; PULSE 100
[2024-08-27] MEDS ORDERED: BENZONATATE 200 MG CAPSULE PO PRN (10:44)
[2024-08-27] MEDS ORDERED: guaiFENesin 600 MG TABLET.ER (FP) PO PRN (10:44)
[2024-08-27] MEDS ORDERED: BISMUTH SUBSALICYLATE 262 MG/15 ML BTL PO PRN (10:44)
[2024-08-27] MEDS ORDERED: OXYMETAZOLINE 0.05% NASAL SOLUTION 15 ML BOTTLE NS PRN (10:46)
== END 2024-08-27 18:11 | disposition left against medical advice (07) | DRG 770 ==
LOC: YASAS 17:25 → Y3NR 22:59 → Y5N 08-26 12:31
PROVIDERS: ADMIT Allergy & Immunology; ATTEND Psychiatry & Neurology Pain Medicine
PROC: HZ42ZZZ Group Counseling for Substance Abuse Treatment, Cognitive-Behavioral (ICD-10-PCS; principal; 2024-08-21)
DX: F14.20 Cocaine dependence, uncomplicated (principal); F10.20 Alcohol dependence, uncomplicated; F17.210 Nicotine dependence, cigarettes, uncomplicated; F31.9 Bipolar disorder, unspecified; I10 Essential (primary) hypertension; J44.1 Chronic obstructive pulmonary disease with (acute) exacerbation
CPT/HCPCS: 0241U-QW; 36415; 71046-TC-FY; 80053; 80305; 80307; 81003; 85027; 86780; 87811; 93005; 93010; 94640